=== PATIENT | male | born 1945 | race Caucasian/White ===

== ENCOUNTER 2020-08-24 21:11 | Observation (INO) ==
[2020-08-25] MEDS ORDERED: *HR* Promethazine 25 MG/ML VIAL IM PRN (00:05)
[2020-08-25] MEDS ORDERED: Ondansetron 4 MG/2 ML VIAL IVP PRN (00:05)
[2020-08-25] MEDS ORDERED: Naloxone 0.4 MG/ML INJ IVP PRN (00:06)
[2020-08-25] MEDS ORDERED: Ketorolac 15 MG/ML VIAL IVP PRN (00:06)
[2020-08-25] MEDS ORDERED: *HR* LORazepam 2 MG/ML VIAL IVP PRN ×3 (00:09)
[2020-08-25] MEDS: Ringers Solution, Lactated 1,000 ML IVC SCH ×2 (00:56→05:22)
[2020-08-25 05:43] LABS: Basophils # 0.1 K/mcL (0.0-0.2); Basophils % 0.5 %; Eosinophils # 0.2 K/mcL (0.0-0.6); Eosinophils % 2.1 %; Hematocrit 40.4 % (37.5-50.1); Hemoglobin 13.6 g/dL (12.9-16.9); Immature Granulocytes % 0.2 % (0-4); Lymphocytes # 2.3 K/mcL (0.6-4.6); Lymphocytes % 22.2 %; Mean Corpuscular HGB Conc 33.7 g/dL (31.6-35.5); Mean Corpuscular Hemoglobin 33.2 pg (28.0-33.3); Mean Corpuscular Volume 98.5 fL (83.0-100.0); Mean Platelet Volume 10.3 fL (9.4-12.4); Monocytes # 0.6 K/mcL (0.0-1.3); Monocytes % 6.1 %; Neutrophils # 7.1 K/mcL (1.6-8.9); Platelet Count 240 K/mcL (140-400); Red Cell Distribution Width 12.9 % (11.5-14.5); Segmented Neutrophils % 68.9 %; White Blood Count 10.2 K/mcL (4.3-11.1)
[2020-08-25 05:55] LABS: Albumin 3.7 g/dL (3.5-5.7); Albumin/Globulin Ratio 1.5 (1.1-2.2); Bilirubin,Direct 0.2 mg/dL (0.0-0.2); Bilirubin,Indirect 0.7 mg/dL (0.0-1.0); Bilirubin,Total 0.9 mg/dL (0.3-1.0); Globulin 2.5 g/dL (2.4-3.5); Total Protein 6.2 g/dL (6.4-8.9)
[2020-08-25 05:56] LABS: Chol/HDL Ratio 2.3 (0-4.9)
[2020-08-25 05:59] LABS: Alanine Aminotransferase 11 Units/L (7-52); Albumin 3.7 g/dL (3.5-5.7); Albumin/Globulin Ratio 1.5 (1.1-2.2); Alkaline Phosphatase 70 Units/L (34-104); Aspartate Amino Transferase 18 Units/L (13-39); BUN/Creatinine Ratio 16 (6-26); Blood Urea Nitrogen 15 mg/dL (8-23); Calcium 8.7 mg/dL (8.6-10.3); Carbon Dioxide 27 mEq/L (23-29); Chloride 104 mEq/L (98-107); Globulin 2.4 g/dL (2.4-3.5); Glucose 113 mg/dL (70-105); Lipase 332 Units/L (11-82); Osmolality,Calculated 286 (280-300); Potassium 4.1 mEq/L (3.5-5.1); Sodium 137 mEq/L (136-145); Total Protein 6.1 g/dL (6.4-8.9); eGFR For African Americans > 60 (> 60); eGFR For Non-African Americans > 60 (> 60)
[2020-08-25] MEDS: Thiamine (B-1) 200 MG in 0.9 % Sodium Chloride 50 ML IVPB SCH (08:52)
[2020-08-25] MEDS: Folic Acid 1 MG in 0.9 % Sodium Chloride 50 ML IVPB SCH (10:27)
[2020-08-25] MEDS: 0.9 % Sodium Chloride 1,000 ML IVC SCH ×2 (11:14→19:29)
[2020-08-26] MEDS: 0.9 % Sodium Chloride 1,000 ML IVC SCH ×2 (03:56→10:28)
[2020-08-26 08:02] VITALS: BP 133/68
[2020-08-26] MEDS ORDERED: lisinopriL 20 MG TABLET PO SCH (09:00)
[2020-08-26] MEDS: Folic Acid 1 MG in 0.9 % Sodium Chloride 50 ML IVPB SCH (10:10)
[2020-08-26] MEDS: Thiamine (B-1) 200 MG in 0.9 % Sodium Chloride 50 ML IVPB SCH (10:10)
== END 2020-08-26 11:27 | disposition home or self-care (01) ==
LOC: 3BNU → SUATTDRO 22:54
PROVIDERS: ADMIT Family Medicine; ATTEND Internal Medicine